=== PATIENT | female | born 1940 ===

== ENCOUNTER 2020-03-07 16:41 | Outpatient (CLI) | payer MEDICARE, SELFPAY ==
[2020-03-07] VITALS (8 sets, daily range): BP systolic 129–175; BP diastolic 81–99; PULSE 67–84; RESP 16–22; TEMP 36.3–36.5; O2SAT 95–98; BMI 32.4
--- NOTE | 2020-03-07 17:22 | W.ED.GENADLT ---
HPI - General Adult General: Chief complaint: Infusion: Covid MCA Stated complaint: BAM INFUSION, CALLED AHEAD Time Seen by Provider: 03/07/20 17:19 History of Present Illness: HPI narrative: 79-year-old female with recent coronavirus infection in for evaluation of monoclonal antibody infusion. The patient overall has a slow recovery and does meet criteria for infusion given her advanced age and duration of infection. Patient's oxygen saturations 95% she is currently denying any difficulty breathing. Review of Systems General: Reports: 10 or more systems reviewed and unremarkable except in HPI and below PFSH ED PFSH: Social History (Updated 03/07/20 @ 17:14 by Elan Deutsch RN) Smoking and tobacco status: former smoker Alcohol intake: former Physical Exam Const: COMMON NORMALS: no acute distress, patient oriented x3, healthy appearing and alert EXAM LIMITATIONS: no altered mental status Resp: COMMON NORMALS: normal respiratory effort EFFORT & INSPECTION: Yes able to speak in complete sentences Cardio: COMMON NORMALS: regular rate and regular rhythm RATE: regular rate RHYTHM: regular rhythm Neuro: COMMON NORMALS: patient oriented x3 and CN's II-XII intact bilaterally SENSORIUM/ORIENTATION: Yes alert Course Vital Signs: Vital signs: Vital Signs Temperature 97.4 F L 03/07/20 17:09 Pulse Rate 84 03/07/20 17:09 Respiratory Rate 16 03/07/20 17:09 Blood Pressure 132/82 03/07/20 17:09 Pulse Oximetry 95 03/07/20 17:09 MDM - General Adult MDM Narrative: Medical decision making narrative: 79-year-old female with recent coronavirus infection here for evaluation of monoclonal antibody infusion. Patient does meet criteria we discussed risk benefits alternatives and complications to the infusion and she is agreeable to starting the infusion and we will do our standard protocol. Discharge Plan Discharge Patient Disposition: Placed in Observation Clinical Impression: COVID-19 virus infection Discharge Diet: Advance as tolerated Discharge Activity: Resume usual activity Coding Level of Care Code ED [employer]s Manager for [employer] Fwd Exam Expanded Problem Focused
--- NOTE | 2020-03-07 20:15 | PM.MISC ---
Miscellaneous Note Purpose of Documentation: Consent for Bamlanivimab Note: I was notified by her RN this evening that she was being prepared for Bamplanivimab infusion in the ER, currently on medical surgical floor as outpatient in a bed, reportedly due to lack of space downstairs. I was requested by nursing staff to go over again regarding consent for the infusion and place order for the medication. I requested she be provided with informational materials. We discussed with her regarding risks and benefits, potential adverse effects as listed on the consent form. Went over alternatives. 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 Currently with symptoms of COVID-19 being mostly fatigue. She verbalized understanding, read over consent form, and requested to proceed with infusion. She understands that she will be monitored following the infusion for at least 1 hour, and subsequently verbalized understanding to follow-up with her primary care provider.
--- NOTE | 2020-03-15 11:42 | DCPLANNER ---
Addendum entered by Eloisa Nuñez 03/20/20 14:08: funeral home manager called to check on patient after getting the BAM infusion. Patient stated that today,she has more energy then she has had, she is feeling pretty good. She has not been admitted to hospital anywhere. Original Note: funeral home manager had message that patient received the BAM infusion. Patient stated that she tolerated the infusion well. That she really did not have any symptoms before the infusion, but she is feeling lousy after the infusion. Stated that she does not have any energy, not feeling well. She is tired, has spoke with nurse at her primary care physicians office. Patient stated that she has not had a fever.
== END 2020-03-07 23:28 | disposition home or self-care (01) ==
LOC: OPMS 18:50 → ER 18:50 → MEDSURG 18:51
PROVIDERS: Emergency Provider Family Medicine; PCP Family Medicine; Visit Provider Family Medicine
DX: U07.1 COVID-19 (principal)
CPT/HCPCS: 12345; 99281; J7050

== ENCOUNTER → 2020-11-13 09:45 | Outpatient (BNVA) | payer MEDICARE, SELFPAY | PROVIDERS: PCP Family Medicine; Referring Provider Registered Nurse; Visit Provider Orthopaedic Surgery | DX: M17.0 Bilateral primary osteoarthritis of knee (principal) | CPT/HCPCS: 73560; 73565 ==

== ENCOUNTER → 2022-10-28 10:12 | Outpatient (BNVA) | payer MEDICARE, SELFPAY | PROVIDERS: PCP Family Medicine; Referring Provider Nurse Practitioner Family; Visit Provider Physician Assistant | DX: S82.51XA Displaced fracture of medial malleolus of right tibia, initial encounter for closed fracture (principal); X58.XXXA Exposure to other specified factors, initial encounter; Z46.89 Encounter for fitting and adjustment of other specified devices; S82.53XD Displaced fracture of medial malleolus of unspecified tibia, subsequent encounter for closed fracture with routine healing; X58.XXXD Exposure to other specified factors, subsequent encounter | CPT/HCPCS: 73610; 97760; 99203; L4361 ==

== ENCOUNTER 2022-10-28 15:03 | Outpatient (CLI) | payer MEDICARE, SELFPAY | END 2022-10-28 15:04 | disposition home or self-care (01) | LOC: SPT 15:04 | PROVIDERS: PCP Family Medicine; Visit Provider Physician Assistant | DX: Z46.89 Encounter for fitting and adjustment of other specified devices (principal); S82.53XD Displaced fracture of medial malleolus of unspecified tibia, subsequent encounter for closed fracture with routine healing; X58.XXXD Exposure to other specified factors, subsequent encounter | CPT/HCPCS: 97760; 99203; L4361 ==

== ENCOUNTER → 2024-08-03 08:06 | Outpatient (BNVA) | payer MEDICARE, SELFPAY | PROVIDERS: PCP Family Medicine; Visit Provider Student in an Organized Health Care Education/Training Program | DX: M17.0 Bilateral primary osteoarthritis of knee (principal); M25.561 Pain in right knee; M25.562 Pain in left knee | CPT/HCPCS: 73560; 73565 ==

== ENCOUNTER 2024-08-03 09:08 | Outpatient (CLI) | payer MEDICARE, SELFPAY | END 2024-08-03 09:09 | disposition home or self-care (01) | LOC: SPT 09:19 | PROVIDERS: PCP Family Medicine; Visit Provider Student in an Organized Health Care Education/Training Program | DX: Z46.89 Encounter for fitting and adjustment of other specified devices (principal); M17.11 Unilateral primary osteoarthritis, right knee | CPT/HCPCS: 20610; J3301; J9999; L1851 ==